=== PATIENT | female | born 1990 | race Caucasian/White ===

== ENCOUNTER → 2019-12-15 07:51 | Outpatient (CLI) | payer OTHER, SELFPAY ==
[2019-12-15 08:25] LABS: Adenovirus,PCR Not Detected (NotDetected); Bordetella Pertussis Not Detected (NotDetected); Chlamydophila Pneumoniae, PCR Not Detected (NotDetected); Coronavirus 19, PCR Not Detected (NotDetected); Coronavirus 229E Not Detected (NotDetected); Coronavirus NL63 Not Detected (NotDetected); Coronavirus OC43 Not Detected (NotDetected); Coronovirus HKU1,PCR Not Detected (NotDetected); Human Metapneumovirus Not Detected (NotDetected); Influenza A, PCR Not Detected (NotDetected); Influenza AH1, 2009 Not Detected (NotDetected); Influenza AH1, PCR Not Detected (NotDetected); Influenza AH3,PCR Not Detected (NotDetected); Influenza B, PCR Not Detected (NotDetected); Mycoplasma Pneumoniae, PCR Not Detected (NotDetected); Parainfluenza 1, PCR Not Detected (NotDetected); Parainfluenza 2, PCR Not Detected (NotDetected); Parainfluenza 3, PCR Not Detected (NotDetected); Parainfluenza 4, PCR Not Detected (NotDetected); Respiratory Syncytial Virus Not Detected (NotDetected); Rhinovirus/Enterovirus Not Detected (NotDetected)
== END ==
PROVIDERS: Visit Provider Internal Medicine Adolescent Medicine
DX: Z03.818 Encounter for observation for suspected exposure to other biological agents ruled out (principal)
CPT/HCPCS: 87581; 87633; 87798

== ENCOUNTER → 2020-05-18 12:53 | Outpatient (POV) | payer OTHER, SELFPAY | PROVIDERS: PCP Nurse Practitioner Family; Visit Provider Dermatology | DX: R00.2 Palpitations (principal); R42 Dizziness and giddiness; I49.3 Ventricular premature depolarization | CPT/HCPCS: 93225; 93226 ==

== ENCOUNTER → 2020-06-03 07:00 | Outpatient (CLI) | payer OTHER, SELFPAY ==
--- NOTE | 2020-06-03 | CA_ITS ---
APPROVED REPORT Exam: Exercise Treadmill Technologist: Chantel Sarah, Ht: 5 ft 6 in Wt: 163 lbs BSA: 1.83 m2 HR: 71 bpm BP: 131/89 mmHg Medical History Medications: Flonase,,,,, ZYRTEC,,,,, Singulair,,,,, Stress Test Details Test: Peewee HR Resting HR: 74 bpm Max Heart Rate (APMHR): 191.210367 bpm Max HR Achieved: 176 bpm Target HR (85% APMHR): 162.458349 bpm % of APMHR: 92.15 Recovery HR: 92 bpm BP Resting BP: 118/82 mmHg Max BP: 160/80 mmHg Recovery BP: 122.0/81.0 mmHg ECG Resting ECG: NSR, frequent PVC. Clinical Exercise duration: 11:31 min Highest Stage Achieved: Exercise capacity: 12.8 METs Stress ECG Conclusion Exercised 11:30 Max HR: 176 % of PM: 92% Max BP: 160/80 MET's: 12.8 Test stopped due to: SOA, Leg fatigue. Symptoms: No CP. Arrhythmias/Ectopy: Occ PVC or fusion beat. PVC's diminished during exercise and returned in recovery (occasional PVC in recovery). ST-T Changes: Normal ST resonse to exercise. Conclusion: Normal GXT. Myoview images reported separately. Test Summary REST . . . . . . . Sitting REST . . . . . . . Standing REST 06:07 0.0 0.0 74 . 118/ 82 . . Stage 1 01:00 10.0 1.7 95 . . . . Stage 1 02:00 10.0 1.7 102 . . . . Stage 1 03:00 10.0 1.7 103 . 124/ 80 . . Stage 2 01:00 12.0 2.5 116 . . . . Stage 2 02:00 12.0 2.5 120 . . . . Stage 2 03:00 12.0 2.5 125 . 144/ 78 . . Stage 3 01:00 14.0 3.4 140 . . . . Stage 3 02:00 14.0 3.4 147 . . . . Stage 3 03:00 14.0 3.4 155 . 160/ 80 . . Stage 4 01:00 16.0 4.2 169 . . . . Stage 4 . . . . . . . Cardiolite injected Stage 4 02:00 16.0 4.2 175 . . . . Stage 4 02:31 16.0 4.2 176 . . . Stop exercise at 11:31 RECOVERY 01:00 0.0 0.0 143 . 158/ 80 . . RECOVERY 02:00 0.0 0.0 106 . 158/ 80 . . RECOVERY 03:00 0.0 0.0 93 . 152/ 90 . . RECOVERY 04:00 0.0 0.0 91 . 136/ 85 . . RECOVERY 05:00 0.0 0.0 87 . 136/ 85 . . RECOVERY 05:36 0.0 0.0 88 . 122/ 81 . . Electronically signed by : Lg Horta, 06/04/2020 08:31:57
--- NOTE | 2020-06-03 07:07 | NM_ITS ---
APPROVED REPORT Exam: Nuclear Stress Test Indication: PVC'S, DYSRHYTHMIA, PALPITATIONS, ABN EKG, ABN ECHO Patient Location: Outpatient Stress Tech: Claudia Hannah NM Tech:Kelly Ellingtonwu ARRT RT (R)(N)(M) Ht: 5 ft 6 in Wt: 163 lbs Bra Size: 36C HR: 71 bpm BP: 131/89 mmHg BSA: 1.83 m2 BMI: 26.3 History: PVC'S, DYSRHYTHMIA, PALPITATIONS, ABN EKG, ABN ECHO Procedure: Patient exercised on Peewee protocol 11:30 minutes and sec, resting heart rate 71 bpm, resting blood pressure 131/89 mmHg, with exercise maximum heart rate achived was 176 bpm which is 92 % of the maximum predicted heart rate and blood pressure was 160/90 mmHg. Test was stopped due to SOA, LEG FATIGUE. Patient denied any complaint of chest pain. Patient has exercise capacity, achieved 12.8 METs of workload on treadmill, the blood pressure response to exercise was . Cardiac Stress and Resting SPECT Images: Cardiac Stress and Resting SPECT images were obtained using technetium 99m Myoview 30.2 mCi stress and 9.84 mCi at rest. Low EF at 49% with global hypokinesia No fixed or reversible defects Conclusion: Low EF of 49% is global hypokinesia otherwise negative exam Electronically signed by : Josias Silva MD 06/07/2020 13:35:53
== END ==
PROVIDERS: PCP Nurse Practitioner Family; Visit Provider Internal Medicine Adolescent Medicine
DX: R06.02 Shortness of breath (principal); I49.3 Ventricular premature depolarization
CPT/HCPCS: 78452; 93017; A9502

== ENCOUNTER → 2022-06-19 08:55 | Outpatient (CLI) | payer OTHER, SELFPAY ==
[2022-06-20 12:12] LABS: Progesterone 9.6 ng/mL (.)
[2022-06-27 13:54] LABS: Anti Mullerian Hormone (AMH) 2.29
== END ==
PROVIDERS: PCP Nurse Practitioner Family; Visit Provider Obstetrics & Gynecology
DX: Z31.69 Encounter for other general counseling and advice on procreation (principal)
CPT/HCPCS: 36415; 82397; 84144

== ENCOUNTER 2023-08-09 14:27 | Outpatient (CLI) | payer OTHER, SELFPAY ==
--- NOTE | 2023-08-09 14:31 | CA_ITS ---
APPROVED REPORT EXAM: Comprehensive 2D, Doppler, and color-flow Echocardiogram Formal Waiter/Waitress: Violet Hernández RT(R) Ht: 5 ft 6 in Wt: 175lbs BSA: 1.89 BP: 120/80 mmHg Indications: Abn EKG, palpitations, mild AI on previous echo 2D Dimensions LVEF (Starkey's) 57.00 % F: 54 - 74 LV Volume 99.50 mL F: 46 - 106 LV Volume Index 52.6 mL/m2 F: 29 - 61 LA Volume 22.20 mL LA Volume Index 11.75 mL/m2 (M/F) 16-34 EF AP4 59.00 % EF AP2 55.6 % EF BP 57.0 % GL Strain -16.0 % M-Mode Dimensions RVDd 2.46 cm (0.9-2.6) LA Diam 2.98 cm (1.9-4.0) LVDd 4.86 cm (3.5-5.7) LVDs 3.61 cm (3.5-5.7) IVSd 0.82 cm (0.6-1.1) PWd 0.64 cm (0.6-1.1) EF (Teich) 50.50% FS 25.70% EDV (Teich) 110.70 mL ESV (Teich) 54.80 mL LV Diastology E Decel Time 263 (160-240 msec) E/A Ratio 1.2 Aortic Valve AI PHT 790.00 ms Mitral Valve MV E Max Doc. 69.0 (40-130 cm/s) MV A Velocity 57.0 (40-130 cm/s) E/A Ratio 1.21 MV PHT 77.0 ms Left Ventricle The left ventricle is normal size. LVEDd=5.1 cm. LVESd=3.3 cm. The left ventricular systolic function is normal. The left ventricular ejection fraction is within the normal range. There is normal left ventricular wall thickness. There is normal LV segmental wall motion. The left ventricular diastolic function is normal. LVEF is 55%. Right Ventricle The right ventricle is normal size. The right ventricular systolic function is normal. Atria The left atrium size is normal. The right atrium size is normal. There is no Doppler evidence of interatrial shunt. Aortic Valve The aortic valve opens well. There is no aortic valvular stenosis. Mild aortic regurgitation. Mitral Valve The mitral valve is normal in structure. No evidence of mitral valve stenosis. There is no mitral valve regurgitation noted. Tricuspid Valve The tricuspid valve leaflets are thin and pliable. Trace physiologic tricuspid regurgitation. There is insufficient TR jet to estimate RVSP. Pulmonic Valve The pulmonary valve is normal in structure. Trace physiologic pulmonary regurgitation. Great Vessels The aortic root is normal in size. The ascending aorta is not well-visualized. IVC is normal in size and collapses >50% with inspiration. Pericardium There is no pericardial effusion. Other Information Study Quality: Adequate Conclusion Normal biventricular size and systolic function. Mild AI. Compared to prior TTE report, the mild AI is unchanged. The AI is mild and isolated, not associated with any structural or functional cardiac abnormality. Electronically signed by : Judi Adames MD 08/09/2023 15:38:11
== END 2023-08-09 23:59 | disposition home or self-care (01) ==
LOC: RT 14:28
PROVIDERS: PCP Nurse Practitioner Family; Visit Provider Nurse Practitioner Family
DX: R00.2 Palpitations (principal)
CPT/HCPCS: 93306

== ENCOUNTER 2024-03-28 08:52 | Outpatient (CLI) | payer OTHER, SELFPAY ==
--- NOTE | 2024-03-28 08:58 | XR_ITS ---
FINAL REPORT CLINICAL HISTORY: RT WRIST PAIN..fall on sat ice skating COMPARISON: None FINDINGS: RIGHT WRIST Three views demonstrate no acute fracture or dislocation. The visualized joint spaces are normally aligned. The soft tissues are unremarkable. IMPRESSION: No acute bony abnormality. Reviewed, Interpreted and Dictated by Truong Franco MD Transcribed by Henna Pinto Authenticated and [facility]
== END 2024-03-28 23:59 | disposition home or self-care (01) ==
LOC: RAD 08:53
PROVIDERS: PCP Nurse Practitioner Family; Visit Provider Nurse Practitioner Family
DX: M25.531 Pain in right wrist (principal)
CPT/HCPCS: 73110

== ENCOUNTER 2024-11-18 17:07 | Outpatient (CLI) | payer BC, SELFPAY ==
--- OUTSIDE RECORDS SUMMARY | 2024-11-18 17:14 | XMS_ITS | Encounter Summary ---
Author Organization [facility] Address [address] [place] [address] Care Team Providers Care General Practitioner Name Role Phone Marcelina Handy JUAN MIGUEL Primary Care Provider [phone] Reason for Visit * Reason Onset Date Comments MANAGER MOBILITY: Care Coordination 11/18/2024 Vagina l Bleeding after Positive UPT - See Note Encounter Details Date Type Department Care Team ([facility] st Contact Info) Description 11/18/2024 Telephone Medical Office Building Obstetrics and Gynecology [address], [address] [place] [address] Ruma Peng MD [address] [place] [address] MANAGER MOBILITY: Care Coordination (Vaginal Bleeding after Positive UPT - See Note) Social History Tobacco Use Types Packs/Day Years Used Date Smoking Tobacco: Never Smokeless Tobacco: Never Alcohol Use Standard Drinks/Week Comments Yes 1 (1 standard drink = 0.6 oz pure alcohol) Alcoholic Drinks/day: Social alcohol use PHQ-2 Answer Date Recorded Patient Health Questionnaire-2 Score 0 08/26/2020 [place] Depression Scale Answer Date Recorded [place] Depression Scale Total 1 05/30/2023 The thought of harming myself has occurred to me . Never 05/30/2023 CAGE ASSESSMENT Answer Date Recorded Cage unable to access Not on file 04/23/2023 Cage max number of drinks Not on file 2023 Cage Beverages a week Not on file 04/23/2023 Have you ever felt you should CUT down on your d rinking? 0 04/23/2023 Have you been ANNOYED by people criticizing your drinking? 0 04/23/2023 Have you felt GUILTY about your drinking? 0 04/23/2023 Have you had a drink first t miguel in the morning ([employer] DELIVERY) to steady your nerves or to get rid of a hangover? 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 LMP: 10/19/2024 = 4.2 weeks today. +UPT @ home on both 11/15 and Sunday11/16/24. She explains that today she began to experience red bleeding, similar to her period,which is light. She states she first noticed the bleeding with wiping and most recently it has increased to spotting in her underwear. No Clots, No sharp abdominal pain, + mild cramping. POC includes Beta hCG Trend. She works @ [employer] and is @ work today. Orders placed for third alliance party; she was able to access the order while on the phone. She will have the first drawn this afternoon with a repeat planned on , 11/20/2024 @ approx. 42h due to plans to leave for the weekend out of town. Patient will reach back out via phone and/or MyChart with results and to modify POC, as indicated. Precautions were reviewed for presenting to the ED for increased bleeding/pain. Understanding verbalized. * Telephone Encounter - Natalia Eagle - 11/18/2024 3:54 PM EDT Called and spoke to Pt, Pt states she's had two PPT and just went to the restroom and had period like bldg need ing to know what to do? Please call and advise. * Telephone Encounter - Laquita Jimenez - 11/18/2024 2:31 PM EDT Clinical Concern/Question Reason for Call: Patient is calling to speak with someone regarding a PPT over the weekend and spotting today Best contact number: [phone] (home) Optimal time of day to reach caller: ANYTIME Additional comments/information from caller: Not Applicable Note: Please do not reply to this message. Follow-up communication and further actions as a result of this message need to be communicated with the patient directly, if the patient is not active onMyChart. If the patient is active on MyChart, they will receive notification of the communication/outcome via [employer]. documented in this encounter Plan of Treatment Not on file documented as of this encounter Visit Diagnoses Not on filedocumented in this encounter Additional Health Concerns Assessment Noted Time A Body Mass Index follow-up plan has been documented for the patient 08/07/2024 10:03 AM EDT documented as of this encounter Care Teams General Practitioner Relationship Specialty Start Date End Date Marcelina Handy APRN [address] [place] [address] PCP - General 06/11/24 documented as of this encounter
--- OUTSIDE RECORDS SUMMARY | 2024-11-18 17:14 | XMS_ITS | Clinical Summary ---
Author Organization Healthcare [place] [address] Care Team Providers Care Emergency Communications Operator Name Role Phone Marcelina Handy Yovanny BULLARD Primary Care Provider [phone] Allergies No known active allergies Medications * This document contains information received from the source organization and may not represent a complete record from that organization. montelukast (Singulair) 10 MG tablet Take 1 tablet (10 mg) by mouth 1 (one) time each day. 08/23/2020 Active fluticasone (Flonase) 50 MCG/ACT nasal spray Instill 1 SPRAY IN EACH NOSTRIL EVERY DAY 07/07/2022 Active docusate sodium (Colace) 250 MG capsule Take 1 capsule (250 mg) by mouth 2 (two) times a day if needed for constipation . 20 capsule 04/26/2023 Active ibuprofen 600 MG tablet Take 1 tablet (600 mg) by mouth every 6 (six) hours if needed for mild pain. 40 tablet 1 04/26/2023 Active acetaminophen (Tylenol) 325 MG tablet Take 2 tablets (650 mg) by mouth every 6 (six) hours if needed for pain. 40 tablet 1 04/26/2023 Active estradiol (Estrace) 0.1 MG/GM vaginal cream Apply a pea-sized amount at the opening to the vagina and just inside the vagina at bedtime as needed. 42.5 g 2 10/22/2023 Active Active Problems Problem Noted Date Diagnosed Date Astigmatism 06/25/2023 Myopia 06/25/2023 Seasonal allergies 01/16/2017 Resolved Problems Problem Noted Date Diagnosed Date Resolved Date Third trimester 04/23/2023 10/05/2022 05/30/2023 Assessment & Plan (04/05/2023 11:53 AM EST): On Flonase for allergies. H/O maternal second cousins with tetrology of fallot, paternal second cousin with Down's Syndrome, and paternal cousin with cerebral palsy. NT appeared WNL. Pt declined NIPT. Anatomy scan normal. B+. - s/p flu and tdap - declines RSV vaccine - 1 hour glucola 116 - already has breast pump - contraception: desires mirena IUD (did well with this in the past) - growth scan 03/08/23 with EFW 64%, AC 78%, vertex, normal AF/dopplers Elevated BP in office x 2, manual repeat normal. She's checking BP at home and work and all have been <140/90 (most in the 110s/80s). Pre-e panel WNL and P:C = 0.2 previously. She's going to go to triage for re-evaluation today. If BP are WNL and labs are okay she would like to wait to 38 0/7 weeks. She is completely asymptomatic other than mild pedal edema. We discussed the diagnosis of GHTN and recommendation for IOL at 37 weeks. If she is able to be discharged today she'll continue to monitor her BP at home and work and will call if 140/90 or higher. Precautions given. GBS today. S&S of labor were taught. Kick counts taught. Precautions given. RTC 1 week. Desires IOL on 04/15/23 @ 38 0/7 if it isn't needed prior to that time. Message sent to Rosmery Ag RN. Assessment & Plan (03/22/2023 8:28 AM EST): On Flonase for allergies. H/O maternal second cousins with tetrology of fallot, paternal second cousin with Down's Syndrome, and paternal cousin with cerebral palsy. NT appeared WNL. Pt declined NIPT. Anatomy scan normal. B+. - s/p flu and tdap - declines RSV vaccine - 1 hour glucola 116 - already has breast pump - contraception: desires mirena IUD (did well with this in the past) - growth scan 03/08/23 with EFW 64%, AC 78%, vertex, normal AF/dopplers Elevated BP in office, repeat normal. She's checking BP at home and work and all have been <140/90. Pre-e panel WNL and P:C = 0.2. She'll continue to monitor her BP at home and work and will call if 140/90 or higher. Precautions given. Assessment & Plan (12/21/2022 9:05 AM EDT): On Flonase for allergies. H/O maternal second cousins with tetrology of fallot, paternal second cousin with Down's Syndrome, and paternal cousin with cerebral palsy. Labs reviewed. NT appeared WNL. Pt declined NIPT. Has anatomy scan scheduled for next week. F/U 4 weeks with glucola and hemogram. B+. Assessment & Plan (11/09/2022 9:04 AM EDT): On Flonase for allergies. H/O maternal second cousins with tetrology of fallot, paternal second cousin with Down's Syndrome, and paternal cousin with cerebral palsy. Labs reviewed. NT appeared WNL. Pt declined NIPT per u/s report. Has anatomy scan scheduled at 22 weeks. F/U 4 weeks. Assessment & Plan (10/06/2022 9:01 AM EDT): Will continue Vit B6 for nausea at present time. On Flonase for allergies. H/O maternal second cousins with tetrology of fallot, paternal second cousin with Down's Syndrome, and paternal cousin with cerebral palsy. Screening folder given and explained to patient. Discussed location of triage. Pt received education on the benefits and management of . Discussed genetic testing options. labs done today. F/U in 4-6 weeks. Encounters Date Type Department Care Team Description 11/18/2024 Orders Only Medical Office Building Obstetrics and Gynecology [address], [address] [place] [address] Cathie Rivers, DECKER OPERATOR, DNP test positive (Primary Dx); First trimester bleeding 11/18/2024 Telephone Medical Office Building Obstetrics and Gynecology [address], [address] [place] [address] Ruma Peng MD GATE MORTISER OPERATOR: Care Coordination (Vaginal Bleeding after Positive UPT - See Note) from Last 3 Months Immunizations Immunization Administration Dates Next Due Hep A, Adult 04/12/2017 Hep B, adult 09/11/2011,07/24/2007,07/23/2005 Influenza, Unspecified 11/28/2018,11/20/2017, MMR 06/06/1995,10/21/1991 Tdap 02/01/2023,10/30/2018 Typhoid, oral 04/02/2019 Family History Medical History Relation Name Comments Cancer Father Hodgkins Lymphoma Hyperlipidemia Other 1 Hypothyroidism Other 2 Relation Name Status Comments Father Hodgkins Lymphoma Other 1 Other 2 Social History Tobacco Use Types Packs/Day Years Used Date Smoking Tobacco: Never Smokeless Tobacco: Never Alcohol Use Standard Drinks/Week Comments Yes 1 (1 standard drink = 0.6 oz pure alcohol) Alcoholic Drinks/day: Social alcohol use PHQ-2 Answer Date Recorded Patient Health Questionnaire-2 Score 0 08/26/2020 [place] Depression Scale Answer Date Recorded [place] Depression Scale Total 1 05/30/2023 The thought [...] drink first t miguel in the morning (EYE-DISC JOCKEY) to steady your nerves or to get rid of a hangover? 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 Not on file Not on file Last Filed Vital Signs Vital Sign Reading Time Taken Comments Blood Pressure 131/85 08/07/2024 9:43 AM EDT Pulse 66 08/07/2024 9:43 AM EDT Temperature 36.1 C (97 F) 06/25/2023 2:18 PM EDT Respiratory Rate 17 08/07/2024 9:43 AM EDT Oxygen Saturation 98% 08/07/2024 9:43 AM EDT Inhaled Oxygen Concentration - - Weight 74.7 kg (164 lb 10.9 oz) 08/07/2024 9:43 AM EDT Height 167.6 cm (5' 6 ) 08/07/2024 9:43 AM EDT Body Mass Index 26.58 08/07/2024 9:43 AM EDT Plan of Treatment Health Maintenance Due Date Last Done Comments [facility]-Infant/Child/Adol SDOH Screenings 1990 [facility]-Varicella Vaccines (1 of 2 - 13+ 2-dose series) 07/17/2003 [facility]- SDOH Screenings 2008 [facility]-Adult SDOH Screenings 2008 [facility]-Depression Screening 05/29/2024 05/30/2023, 070 02/2020 [id number] Vaccine ( season) 2024 12/31/2020, 03/18/2020, 02/18/2020 [facility]-Influenza Vaccine (#1) 10/27/202412/13, 12/08/2022, 12/10/2020, Additional history exists [facility]-Pap Smear 06/24/2026 06/25/2023, 07/0 02/2019, 08/19/2018 [facility]-Cervical Cancer Screening 06/24/2028 [facility]-HPV/Cotest 06/24/2028 06/25/2023, 070 02/2019, 08/19/2018 [facility]-DTaP,Tdap,and Td Vaccines (11 - Td or Tdap) 02/01/2033 02/01/2023, 05/02/2022, 10/30/2018, Additional history exists [facility]-Zoster Vaccines (1 of 2) 2040 [facility]-HIB Vaccines Completed 06/06/1995, , 01/16/1991, Additional history exists [facility]-IPV Vaccines Completed 06/06/1995, , 1990, Additional history exists HPV Vaccines Completed 02/24/2009, 080 06/2008, 07/29/2008 [facility]-Hepatitis B Vaccines Completed 012, 07/24/2007, 07/23/2005, Additional history exists [facility]-Hepatitis A Vaccines Completed 018, 09/15/1997, 08/10/1997 [facility]-HIV Screening Completed 10/05/2022 [facility]-Hepatitis C Screening Completed 10/05/2022 [facility]-Obesity Intervention Completed 025, 09/06/2023, 06/25/2023, Additional history exists [facility]-Pneumococcal Vaccine: Pediatrics (0 to 5 Years) and At-Risk Patients (6 to 49 Years) Aged Out No longer eligible based on patient's age to complete this topic [facility]-Rotavirus Vaccines Aged Out No lo nger eligible based on patient's age to complete this topic Procedures Procedure Name Priority Date/Time Associated Diagnosis Comments PAP TEST - CYTOLOGY Routine 06/25/2023 3 :05 PM EDT Encounter for IUD insertion HEPATITIS C ANTIBODY W/REFLEX TO HCV QUANT PCR Routine 10/05/2022 9:37 AM EDT 8 weeks gestation of HIV 1/2 ANTIBODY/ANTIGEN SCREEN WITH REFLEX TO HIV I/II DIFFERENTIATION Routine 10/05/2022 9:37 AM EDT 8 weeks gestation of from Last 3 Months or Most Recently Relevant to Health Maintenance Results * Pap Test (06/25/2023 3:05 PM EDT) Case Report Cytology Case: [id number] Authorizing Provider: Ruma Peng MD Collected: 06/25/2023 7688 Ordering Location: Medical Office Building Received: 06/25/2023 1505 Obstetrics and Gynecology First Screen: Mariel Rossi Specimen: ThinPrep Pap Test, Liquid-Based Cervical/Vaginal 07/10/2023 11:[address] [facility] Interpretation NEGATIVE FOR INTRAEPITHELIAL LESION OR MALIGNANCY 07/10/2023 11:[address] [facility] at 1132 EDT Specimen Adequacy Satisfactory for evaluation; endocervical/ulrich sformation zone component present. Slide scanned and imaged by [employer] Imaging System with manual review of all selected kirby. 07/10/2023 11:[address] [facility] Cervical cytology is a screening test primarily for squamous cancers and precursors and has associated false negative and positive results. New technologies such as liquid based sampling may decrease but will not eliminate all false negative results. Regular screening and follow-up of unexplained clinical signs and symptoms are recommended to minimize false negative results. Please see the ASCCP website (www.asccp.org)fo r followup recommendations. If HPV testing was requested, correlation with the results is suggested (please call Microbiology at [phone] for results). 07/10/2023 11:[address] [facility] Menstrual Status Unknown 07/10/19 11:[address] [facility] Contraceptive History Not Applicable 07/10/2023 11:[address] [facility] Screening Type Routine Screen 2023 11:[address] [facility] High Risk? No 07/10/2023 11:[address] [facility] HPV Testing Requested? Request HPV Testing Regardless of Pap Test Findings 07/10/2023 11:[address] [facility] Previous Cancer History No 07/10/2023 11:[address] [facility] Clinical Information Z30.430 - Encounter for IUD insertion [ICD-10-CM] 07/10/2023 11:[address] [facility] Swab Vaginal and cervical cytologic material / Unknown Non-blood Collection / Unknown 06/25/2023 3:05 PM EDT 06/25/2023 3:05 PM EDT us Ruma Peng MD LAB CYTOLOGY ORDERABLES Final Result [facility] [address] [place] [address] * HIV 1 & 2 Antibody/Antigen Screen (10/05/2022 9:37 AM EDT) Pathologist [facility] HIV 1 & 2 Antibody/Antigen Screen Non Reactive Non Reactive 10/05/2022 11:53 AM EDT [facility] Comment:Screening for HIV 1 & 2 antibodies, and P24 antigen is NONREACTIVE. No confirmatory testing is required. Blood Venous blood specimen / Unknown Venipuncture / Unknown 10/05/2022 9:37 AM EDT 10/05/2022 9:37 AM EDT Ruma Peng MD LAB BLOOD ORDERABLES Fin al Result [facility] [address] [place] [address] * Hepatitis C Antibody w/Reflex to HCV Quant PCR (10/05/2022 9:37 AM EDT) Pathologist [facility] [place] Hepatitis C Antibody Negative Negative 10/05/2022 11:[address] [facility] Blood Venous blood specimen / Unknown Venipuncture / Unknown 10/05/2022 9:37 AM EDT 10/05/2022 9:37 AM EDT Ruma Peng MD LAB BLOOD ORDERABLES Fin al Result Performing Organization Address City/[facility] Co de Phone Number [facility] [address] [place] [address] from Last 3 Months or Most Recently Relevant to Health Maintenance Insurance [facility] Advance Directives * Full Code (Latest Code Status on File) Date Activated Date Inactivated Comments 04/23/2023 12:50 AM 04/26/2023 2:24 PM Question Answer Comments Patient has decision-making capacity? Yes Care Teams Emergency Communications Operator Relationship Specialty Start Date End Date Marcelina Handy, JUAN MIGUEL [address] [facility] [facility] [place] [address] PCP - General 06/11/24
--- OUTSIDE RECORDS SUMMARY | 2024-11-18 17:14 | XMS_ITS | Encounter Summary ---
Author Organization Healthcare Address [address] [place] [address] Care Team Providers Care Blow Up Operator Name Role Phone Handy, Marcelina Hairston APRN Primary Care Provider [phone] Encounter Details Date Type Department Care Team ([facility] Contact Info) Description 11/18/2024 Orders Only Medical Office Building Obstetrics and Gynecology [address] [facility], [address] [place] [address] Cathie Rivers APRN, DNP [address] [facility] [address] [place] [address] test positive (Primary Dx); First trimester bleeding Social History Tobacco Use Types Packs/Day Years Used Date Smoking Tobacco: Never Smokeless Tobacco: Never Alcohol Use Standard Drinks/Week Comments Yes 1 (1 standard drink = 0.6 oz pure alcohol) Alcoholic Drinks/day: Social alcohol use PHQ-2 Answer Date Recorded Patient Health Questionnaire-2 Score 0 08/26/2020 [place] Depression Scale Answer Date Recorded [place] Depression Scale Total 1 05/30/2023 The thought [...] drink first t miguel in the morning (EYE-IMPLANT POLISHER) to steady your nerves or to get rid of a hangover? 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 Not on file Not on file documented as of this encounter Plan of Treatment Scheduled Orders Name Type Priority Associated Diagnoses Orde r Schedule hCG, Total Beta, Quantitative, Plasma Lab Routine First trimester bleeding test positive Expected: 11/20/2024 (Approximate), Expires: 05/22/2026 hCG, Total Beta, Quantitative, Plasma Lab Routine First trimester bleeding test positive Expected: 11/18/2024 (Approximate), Expires: 05/22/2026 documented as of this encounter Visit Diagnoses Diagnosis test positive- Primary examination or test, positive result First trimester bleeding Unspecified hemorrhage in early , antepartum documented in this encounter Additional Health Concerns Assessment Noted Time A Body Mass Index follow-up plan has been documented for the patient 08/07/2024 10:03 AM EDT documented as of this encounter Care Teams Blow Up Operator Relationship Specialty Start Date End Date Marcelina Handy APRN [address] [address] PCP - General 06/11/24 documented as of this encounter
== END 2024-11-18 23:59 | disposition home or self-care (01) ==
PROVIDERS: PCP Nurse Practitioner Family
DX: O20.9 Hemorrhage in early pregnancy, unspecified (principal); Z32.01 Encounter for pregnancy test, result positive
CPT/HCPCS: 84702

== ENCOUNTER 2024-11-20 09:37 | Outpatient (CLI) | payer BC, SELFPAY ==
--- OUTSIDE RECORDS SUMMARY | 2024-11-20 09:44 | XMS_ITS | Encounter Summary ---
Author Organization [facility] Address [address] [place] [address] Care Team Providers Care Baffle Installer Name Role Phone Marcelina Handy JUAN MIGUEL Primary Care Provider [phone] Reason for Visit * Reason Onset Date Comments GRAPHIC TECHNICIAN: Care Coordination 11/18/2024 Vagina l Bleeding after Positive UPT - See Note Encounter Details Date Type Department Care Team ([facility] Contact Info) Description 11/18/2024 Telephone Medical Office Building Obstetrics and Gynecology [address] [facility], [address] [place] [address] Ruma Peng MD [address] [facility] [address] [place] [address] GRAPHIC TECHNICIAN: Care Coordination (Vaginal Bleeding after Positive UPT - See Note) Social History Tobacco Use Types Packs/Day Years Used Date Smoking Tobacco: Never Smokeless Tobacco: Never Alcohol Use Standard Drinks/Week Comments Yes 1 (1 standard drink = 0.6 oz pure alcohol) Alcoholic Drinks/day: Social alcohol use PHQ-2 Answer Date Recorded Patient Health Questionnaire-2 Score 0 08/26/2020 [place] Depression Scale Answer Date Recorded [place] Depression Scale Total 1 05/30/2023 The thought [...] drink first t miguel in the morning (EYE-DRY CLEANING COUNTER CLERK) to steady your nerves or to get rid of a hangover? 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 She works @ [employer] and is @ work today. Orders placed for third republican; she was able to access the order [...] weekend and spotting today Best contact number: [phone] (home) Optimal time of day to reach [...] will receive notification of the communication/outcome via [employer]. documented in this encounter Plan of Treatment Not on file documented as of this encounter Visit Diagnoses Not on filedocumented in this encounter Additional Health Concerns Assessment Noted Time A Body Mass Index follow-up plan has been documented for the patient 08/07/2024 10:03 AM EDT documented as of this encounter Care Teams Baffle Installer Relationship Specialty Start Date End Date Marcelina Handy APRN [address] [facility] [address] [place] [address] PCP - General 06/11/24 documented as of this encounter
--- OUTSIDE RECORDS SUMMARY | 2024-11-20 09:44 | XMS_ITS | Clinical Summary ---
Author Organization Healthcare [place] [address] Care Team Providers Care Fur Polisher Name Role Phone Marcelina Handy Yovanny BULLARD Primary Care Provider [phone] Allergies No known active allergies Medications * [...] Office Building Obstetrics and Gynecology [address] [facility], [address] [place] [address] Cathie Rivers, SUPERVISOR CONCRETE PIPE PLANT, DNP test positive (Primary Dx); First trimester bleeding 11/18/2024 Telephone Medical Office Building Obstetrics and Gynecology [address] [facility], [address] [place] [address] Ruma Peng MD GASTROENTEROLOGY MANAGER: Care Coordination (Vaginal Bleeding after Positive UPT [...] Recorded Patient Health Questionnaire-2 Score 0 08/26/2020 [place] Depression Scale Answer Date Recorded [place] Depression Scale Total 1 05/30/2023 The thought [...] drink first t miguel in the morning (EYE-CUSTOMER SOLUTIONS ARCHITECT) to steady your nerves or to get rid of a hangover? 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 Not on file Not [...] 2008 [facility]-Depression Screening 05/29/2024 05/30/2023, 070 02/2020 [id number] Vaccine ( season) 2024 12/31/2020, 03/18/2020, 02/18/2020 [...] 3:05 PM EDT) Case Report Cytology Case: [id number] Authorizing Provider: Ruma Peng MD Collected: 06/25/2023 8066 Ordering Location: Medical Office Building Received: 06/25/2023 1505 Obstetrics and Gynecology First Screen: Mariel Rossi Specimen: ThinPrep Pap Test, Liquid-Based Cervical/Vaginal 07/10/2023 11:32 AM EDT [facility] Interpretation NEGATIVE FOR INTRAEPITHELIAL LESION OR MALIGNANCY 07/10/2023 11:32 AM EDT [facility] at 1132 EDT Specimen Adequacy Satisfactory for evaluation; endocervical/ulrich sformation zone component present. Slide scanned and imaged by [facility] [employer] [facility] with manual review of all selected kirby. 07/10/2023 11:32 AM EDT [facility] Cervical cytology is a screening test [...] results is suggested (please call Microbiology at [phone] for results). 07/10/2023 11:32 AM EDT [facility] Menstrual Status Unknown 07/10/19 11:32 AM EDT [facility] Contraceptive History Not Applicable 07/10/2023 11:32 AM EDT [facility] Screening Type Routine Screen 2023 11:32 AM EDT [facility] High Risk? No 07/10/2023 11:32 AM EDT [facility] HPV Testing Requested? Request HPV Testing Regardless of Pap Test Findings 07/10/2023 11:32 AM EDT [facility] Previous Cancer History No 07/10/2023 11:32 AM EDT [facility] Clinical Information Z30.430 - Encounter for IUD insertion [ICD-10-CM] 07/10/2023 11:32 AM EDT [facility] Swab Vaginal and cervical cytologic material / Unknown Non-blood Collection / Unknown 06/25/2023 3:05 PM EDT 06/25/2023 3:05 PM EDT us Ruma Peng MD LAB CYTOLOGY ORDERABLES Final Result [facility] [address] [place] [address] * HIV 1 & 2 Antibody/Antigen Screen [...] MD LAB BLOOD ORDERABLES Fin al Result [facility] [address] [place] [address] * Hepatitis C Antibody w/Reflex to HCV Quant PCR (10/05/2022 9:37 AM EDT) Pathologist [facility] Hepatitis C Antibody Negative Negative 10/05/2022 11:46 AM EDT [facility] Blood Venous blood specimen / Unknown Venipuncture / Unknown 10/05/2022 9:37 AM EDT 10/05/2022 9:37 AM EDT Ruma Peng MD LAB BLOOD ORDERABLES Fin al Result Performing Organization Address City/[facility] Co de Phone Number [facility] [address] [place] [address] from Last 3 Months or Most Recently Relevant to Health Maintenance Insurance [facility] ANTHEM Advance Directives * Full Code (Latest Code Status on File) Date Activated Date Inactivated Comments 04/23/2023 12:50 AM 04/26/2023 2:24 PM Question Answer Comments Patient has decision-making capacity? Yes Care Teams Fur Polisher Relationship Specialty Start Date End Date Marcelina Handy, JUAN MIGUEL [address] [facility] [address] [place] [address] PCP - General 06/11/24
--- OUTSIDE RECORDS SUMMARY | 2024-11-20 09:44 | XMS_ITS | Encounter Summary ---
Author Organization Healthcare Address [address] [place] [address] Care Team Providers Care Phosphoric Acid Operator Name Role Phone Handy, Marcelina aHirston APRN Primary Care Provider [phone] Encounter Details Date Type Department Care Team ([facility] Contact Info) Description 11/18/2024 Orders Only Medical Office Building Obstetrics and Gynecology [address] [facility], [address] [place] [address] Cathie Rivers APRN, DNP [address] [facility] [address] [place] [address] test positive (Primary Dx); First trimester bleeding Social History Tobacco Use Types Packs/Day Years Used Date Smoking Tobacco: Never Smokeless Tobacco: Never Alcohol Use Standard Drinks/Week Comments Yes 1 (1 standard drink = 0.6 oz pure alcohol) Alcoholic Drinks/day: Social alcohol use PHQ-2 Answer Date Recorded Patient Health Questionnaire-2 Score 0 08/26/2020 [place] Depression Scale Answer Date Recorded [place] Depression Scale Total 1 05/30/2023 The thought [...] drink first t miguel in the morning (EYE-MIDDLE SCHOOL HISTORY TEACHER) to steady your nerves or to get rid of a hangover? 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
== END 2024-11-20 23:59 | disposition home or self-care (01) ==
LOC: LAB 09:38
PROVIDERS: PCP Nurse Practitioner Family; Visit Provider Nurse Practitioner Pediatrics
DX: O20.9 Hemorrhage in early pregnancy, unspecified (principal); Z32.01 Encounter for pregnancy test, result positive; Z3A.00 Weeks of gestation of pregnancy not specified
CPT/HCPCS: 36415; 84702

== ENCOUNTER 2024-12-24 10:48 | Outpatient (CLI) | payer BC, SELFPAY ==
--- NOTE | 2024-12-24 10:51 | XR_ITS ---
FINAL REPORT CLINICAL HISTORY: PAIN in PIP joint of great toe FINDINGS: LEFT FOOT Three views were obtained. There is no fracture or dislocation. The joint spaces appear normal. No soft tissue abnormality is identified. IMPRESSION: No acute process. Reviewed, Interpreted and Dictated by Truong Franco MD Transcribed by Ira Macias Authenticated and . [facility]
--- OUTSIDE RECORDS SUMMARY | 2024-12-24 10:55 | XMS_ITS | Clinical Summary ---
Author Organization [place] [address] Care Team Providers Care Ship Washer Name Role Phone Marcelina Handy Yovanny BULLARD Primary Care Provider [phone] Allergies No known active allergies Medications * [facility] [place] [address] Cathie Rivers, HOUSEKEEPER CLEANING COOKING, DNP test positive (Primary Dx); First trimester bleeding 11/18/2024 Telephone Medical Office Building Obstetrics and Gynecology [address] [facility], [address] [place] [address] Ruma Peng MD SIEBEL ADMINISTRATOR: Care Coordination (Vaginal Bleeding after Positive UPT [...] Recorded Patient Health Questionnaire-2 Score 0 08/26/2020 [place] Depression Scale Answer Date Recorded [place] Depression Scale Total 1 05/30/2023 The thought [...] drink first t miguel in the morning (EYE-DOCK GUARD) to steady your nerves or to get rid of a hangover? 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 Not on file Not [...] 2008 [facility]-Depression Screening 05/29/2024 05/30/2023, 070 02/2020 [id number] Vaccine ( season) 2024 12/31/2020, 03/18/2020, 02/18/2020 [...] 3:05 PM EDT) Case Report Cytology Case: [id number] Authorizing Provider: Ruma Peng MD Collected: 06/25/2023 6450 Ordering Location: Medical Office Building Received: 06/25/2023 1505 Obstetrics and Gynecology First Screen: Mariel Rossi Specimen: ThinPrep Pap Test, Liquid-Based Cervical/Vaginal 07/10/2023 11:32 AM EDT [facility] Interpretation NEGATIVE FOR INTRAEPITHELIAL LESION OR MALIGNANCY 07/10/2023 11:32 AM EDT [facility] at 1132 EDT Specimen Adequacy Satisfactory for evaluation; endocervical/ulrich sformation zone component present. Slide scanned and imaged by [facility] System with manual review of all selected kirby. 07/10/2023 11:32 AM EDT [facility] Cervical cytology is a screening test [...] results is suggested (please call Microbiology at [phone] for results). 07/10/2023 11:32 AM EDT [facility] Menstrual Status Unknown 07/10/19 11:32 AM EDT [facility] Contraceptive History Not Applicable 07/10/2023 11:32 AM EDT [facility] Screening Type Routine Screen 2023 11:32 AM EDT [facility] High Risk? No 07/10/2023 11:32 AM EDT [facility] HPV Testing Requested? Request HPV Testing Regardless of Pap Test Findings 07/10/2023 11:32 AM EDT [facility] Previous Cancer History No 07/10/2023 11:32 AM EDT [facility] Clinical Information Z30.430 - Encounter for IUD insertion [ICD-10-CM] 07/10/2023 11:32 AM EDT [facility] Swab Vaginal and cervical cytologic material / Unknown Non-blood Collection / Unknown 06/25/2023 3:05 PM EDT 06/25/2023 3:05 PM EDT us Ruma Peng MD LAB CYTOLOGY ORDERABLES Final Result [facility] [address] [place] [address] * HIV 1 & 2 Antibody/Antigen Screen (10/05/2022 9:37 AM EDT) Pathologist [facility] HIV 1 & 2 Antibody/Antigen Screen Non Reactive Non Reactive 10/05/2022 11:53 AM EDT [facility] Comment:Screening for HIV 1 & 2 antibodies, and P24 antigen is NONREACTIVE. No confirmatory testing is required. Blood Venous blood specimen / Unknown Venipuncture / Unknown 10/05/2022 9:37 AM EDT 10/05/2022 9:37 AM EDT Ruma Peng MD LAB BLOOD ORDERABLES Fin al Result [facility] [address] [place] [address] * Hepatitis C Antibody w/Reflex to HCV Quant PCR (10/05/2022 9:37 AM EDT) Pathologist [facility] Hepatitis C Antibody Negative Negative 10/05/2022 11:46 AM EDT [facility] Blood Venous blood specimen / Unknown Venipuncture / Unknown 10/05/2022 9:37 AM EDT 10/05/2022 9:37 AM EDT Ruma Peng MD LAB BLOOD ORDERABLES Fin al Result Performing Organization Address City/[facility] Co de Phone Number [facility] [address] [place] [address] from Last 3 Months or Most Recently Relevant to Health Maintenance Insurance [facility] ANTHEM Advance Directives * Full Code (Latest Code Status on File) Date Activated Date Inactivated Comments 04/23/2023 12:50 AM 04/26/2023 2:24 PM Question Answer Comments Patient has decision-making capacity? Yes Care Teams Ship Washer Relationship Specialty Start Date End Date Marcelina Handy, JUAN MIGUEL [address] [facility] [address] [place] [address] PCP - General 06/11/24
--- OUTSIDE RECORDS SUMMARY | 2024-12-24 10:55 | XMS_ITS | Encounter Summary ---
Author Organization [facility] Address [address] [place] [address] Care Team Providers Care Behavior Interventionist Name Role Phone Marcelina Handy JUAN MIGUEL Primary Care Provider [phone] Reason for Visit * Reason Onset Date Comments COPPERSMITH APPRENTICE: Care Coordination 11/18/2024 Vagina l Bleeding after Positive UPT - See Note Encounter Details Date Type Department Care Team ([facility] st Contact Info) Description 11/18/2024 Telephone Medical Office Building Obstetrics and Gynecology [address] [facility], [address] [place] [address] Ruma Peng MD [address] [facility] [address] [place] [address] COPPERSMITH APPRENTICE: Care Coordination (Vaginal Bleeding after Positive UPT - See Note) Social History Tobacco Use Types Packs/Day Years Used Date Smoking Tobacco: Never Smokeless Tobacco: Never Alcohol Use Standard Drinks/Week Comments Yes 1 (1 standard drink = 0.6 oz pure alcohol) Alcoholic Drinks/day: Social alcohol use PHQ-2 Answer Date Recorded Patient Health Questionnaire-2 Score 0 08/26/2020 [place] Depression Scale Answer Date Recorded [place] Depression Scale Total 1 05/30/2023 The thought [...] drink first t miguel in the morning (EYE-CUSTOM LEATHER PRODUCTS MAKER) to steady your nerves or to get rid of a hangover? 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 Beta hCG on 11/18/24 = 8. She just repeated testing today, which has not resulted yet. Patient states her bleeding has continues similar to her normal cycle. Cramping has resolved and she no longer feels the subjective symptoms of like breast tenderness or fatigue. Explained that if her Beta hCG decreases, it would indicate loss/possible chemical and no additional testing is needed for value <5. Expectations for bleeding r/t loss reviewed.If Beta hCG increases, patient aware she will need continued evaluation, with POC updated based on result. Understanding verbalized. She will call back with or send today's lab result via [employer] once received to her patient portal from the [facility]. Will update Lorna Rivers APRN. * Telephone Encounter - [place] Ag RN - 11/20/2024 10:09 AM EDT Attempt to call the patient to follow-up re: her bleeding and Beta hCG results was unsuccessful. NoAnswer. Voicemail left requesting a call back @ her convenience. * Telephone Encounter - [place] Ag RN [...] includes Beta hCG Trend. She works @ [employer] and is @ work today. Orders placed [...] weekend and spotting today Best contact number: [phone] (home) Optimal time of day to reach [...] will receive notification of the communication/outcome via [employer]. documented in this encounter Plan of Treatment Not on file documented as of this encounter Visit Diagnoses Not on filedocumented in this encounter Additional Health Concerns Assessment Noted Time A Body Mass Index follow-up plan has been documented for the patient 08/07/2024 10:03 AM EDT documented as of this encounter Care Teams Behavior Interventionist Relationship Specialty Start Date End Date Marcelina Handy APRN [address] [place] [address] PCP - General 06/11/24 documented as of this encounter
--- OUTSIDE RECORDS SUMMARY | 2024-12-24 10:55 | XMS_ITS | Encounter Summary ---
Author Organization Healthcare Address [address] [place] [address] Care Team Providers Care Drop Hammer Setter Up Name Role Phone Handy, Marcelina Hairston APRN Primary Care Provider [phone] Encounter Details Date Type Department Care Team ([facility] Contact Info) Description 11/18/2024 Orders Only Medical Office Building Obstetrics and Gynecology [address] [facility], [address] [place] [address] Cathie Rivers APRN, DNP [address] [facility] [address] [place] [address] test positive (Primary Dx); First trimester bleeding Social History Tobacco Use Types Packs/Day Years Used Date Smoking Tobacco: Never Smokeless Tobacco: Never Alcohol Use Standard Drinks/Week Comments Yes 1 (1 standard drink = 0.6 oz pure alcohol) Alcoholic Drinks/day: Social alcohol use PHQ-2 Answer Date Recorded Patient Health Questionnaire-2 Score 0 08/26/2020 [place] Depression Scale Answer Date Recorded [place] Depression Scale Total 1 05/30/2023 The thought [...] drink first t miguel in the morning (EYE-THEATRICAL AGENT) to steady your nerves or to get rid of a hangover? 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
== END 2024-12-24 23:59 | disposition home or self-care (01) ==
LOC: RAD 10:49
PROVIDERS: PCP Nurse Practitioner Family; Visit Provider Nurse Practitioner Family
DX: M79.672 Pain in left foot (principal)
CPT/HCPCS: 73630